=== PATIENT | male | born 1995 | race Caucasian/White ===

== ENCOUNTER 2022-03-02 13:14 | Observation (INO) | payer BC ==
[~2022-03-02] VITALS: Ht 175.3 cm; Wt 53.5 kg
[2022-03-02 14:44] LABS: BASOPHILS ABSOLUTE AUTO 0.07 K/mm3 (0.00-0.23); BASOPHILS PERCENT AUTO 1 % (0-2); EOSINOPHILS PERCENT AUTO 0 % (0-6); Hematocrit 44.1 % (37.0-53.0); Hemoglobin 15.7 g/dL (13.5-17.5); IMMATURE GRAN ABSOLUTE AUTO 0.04 K/mm3 (0.00-0.10); IMMATURE GRAN PERCENT AUTO 0 % (0-1); LYMPHOCYTES ABSOLUTE AUTO 0.97 K/mm3 (0.84-5.20); LYMPHOCYTES PERCENT AUTO 7 % (21-46); MONOCYTES ABSOLUTE AUTO 1.53 K/mm3 (0.16-1.47); MONOCYTES PERCENT AUTO 11 % (4-13); Mean Corpuscular HGB 30.5 pg (26.0-34.0); Mean Corpuscular HGB Conc 35.6 g/dL (31.5-36.5); Mean Corpuscular Volume 86 fL (80-100); Mean Platelet Volume 10.4 fL (9.1-12.4); NEUTROPHILS ABSOLUTE AUTO 11.46 K/mm3 (1.96-9.15); NEUTROPHILS PERCENT AUTO 81 % (41-73); Platelet Count 380 K/mm3 (150-400); RDW Coefficient Variation 11.9 % (11.7-14.2); RDW Standard Deviation 37.9 fL (35.1-46.3); Red Blood Cell Count 5.14 M/mm3 (4.30-5.90); White Blood Cell Count 14.07 K/mm3 (4.00-11.30)
[2022-03-02 15:06] LABS: Alanine Aminotransfer (ALT/SGP 30 U/L (12-78); Albumin, Blood 4.6 g/dL (3.4-5.0); Albumin/Globulin Ratio 1.4 (0.8-1.8); Alk Phos 71 U/L (50-136); Anion Gap 12 mmol/L (6-16); Aspartate Aminotrans (AST/SGOT 16 U/L (12-37); Blood Urea Nitrogen 16 mg/dL (8-24); CO2, Blood 22 mmol/L (21-32); Calcium, Blood 9.6 mg/dL (8.5-10.1); Chloride, Blood 106 mmol/L (98-108); Creatinine, Blood 0.94 mg/dL (0.60-1.20); Globulin, Blood 3.3 g/dL (2.2-4.0); Glomerular Filtration Rate >60 (60-); Glucose, Blood 124 mg/dL (70-99); Potassium, Blood 3.3 mmol/L (3.5-5.5); Sodium, Blood 140 mmol/L (136-145); Total Protein, Blood 7.9 g/dL (6.4-8.2)
[2022-03-02 16:04] LABS: Source, Urine Clean Catch
[2022-03-02 16:07] LABS: Acetaminophen, Random <2.0 ug/mL (10.0-30.0); Salicylate <1.7 mg/dL (2.8-20.0)
[2022-03-02 16:18] LABS: Appearance, Urine Clear (Clear); Bilirubin, Urine Neg (Neg); Blood, Urine 1+ (Neg); Color, Urine Amber (P-Yellow); Glucose Qualitative, Urine Neg (Neg); Ketones, Urine 1+ (Neg); Leukocyte Esterase, Urine Neg (Neg); Nitrite, Urine Neg (Neg); Protein, Urine 3+ (Neg); Specific Gravity, Urine 1.025 (1.003-1.022); Urobilinogen, Urine NORM (Normal)
[2022-03-02 16:36] LABS: Bacteria Few /hpf; Mucus Light (0-Heavy); Squamous Epithelial Cells Rare /hpf (Few)
[2022-03-02 16:38] LABS: U Amphetamine Screen Not Detected; U Barbituate Screen Not Detected; U Benzodiazapine Screen Not Detected; U Buprenorphine Screen Not Detected; U Cannabinoids Screen DETECTED; U Cocaine Screen Not Detected; U Methadone Screen Not Detected; U Methamphetamine Screen Not Detected; U Opiates Screen Not Detected; U Oxycodone Screen Not Detected; U Phencyclidine Screen Not Detected; U Propoxyphene Screen Not Detected
[2022-03-02 19:22] LABS: Influenza A, PCR NEGATIVE (NEGATIVE); Influenza B, PCR NEGATIVE (NEGATIVE); Resp Syncytial Virus, PCR NEGATIVE (NEGATIVE); SARS-Cov-2 (COVID-19) PCR, MMC NEGATIVE (NEGATIVE)
== END 2022-03-04 19:53 ==
LOC: ER 13:14 → EOR 13:15
PROVIDERS: ADMIT Emergency Medicine
DX: F12.950 Cannabis use, unspecified with psychotic disorder with delusions (principal); F12.951 Cannabis use, unspecified with psychotic disorder with hallucinations; F90.9 Attention-deficit hyperactivity disorder, unspecified type; J32.0 Chronic maxillary sinusitis; R00.0 Tachycardia, unspecified; F84.5 Asperger's syndrome; Z20.822 Contact with and (suspected) exposure to COVID-19; G43.909 Migraine, unspecified, not intractable, without status migrainosus
CPT/HCPCS: 0241U; 36415; 70450; 80053; 81001; 84443; 85025; 86592; 93005; 93010; A9270; G0480; J2060; J7030

== ENCOUNTER 2025-04-20 08:47 | Observation (INO) | payer OTHER ==
[~2025-04-20] VITALS: Ht 175.3 cm; Wt 59.4 kg
[~2025-04-20 08:47] MED LIST: Ativan0.5 MG PO; BUPROPION XL150 M1 PO; SEROQUEL100 MG PO
[2025-04-20] MEDS ORDERED: Haloperidol Lactate Inj. 5 MG/ML Injection IM ONE ×2 (09:20→14:05)
[2025-04-20] MEDS ORDERED: LORazepam 2 MG/ML 1ML Injection IM ONE ×2 (09:25→14:10)
[2025-04-20] MEDS ORDERED: Divalproex Sod125 M1 PO (09:32)
[2025-04-20] MEDS ORDERED: QUETIAPINE FUMA5012 PO (09:33)
[2025-04-20 09:57] LABS: BASOPHILS ABSOLUTE AUTO 0.09 K/mm3 (0.00-0.23); BASOPHILS PERCENT AUTO 1 % (0-2); EOSINOPHILS ABSOLUTE AUTO 0.05 K/mm3 (0.00-0.68); EOSINOPHILS PERCENT AUTO 0 % (0-6); Hematocrit 43.9 % (37.0-53.0); Hemoglobin 15.1 g/dL (13.5-17.5); IMMATURE GRAN ABSOLUTE AUTO 0.03 K/mm3 (0.00-0.10); IMMATURE GRAN PERCENT AUTO 0 % (0-1); LYMPHOCYTES ABSOLUTE AUTO 2.46 K/mm3 (0.84-5.20); LYMPHOCYTES PERCENT AUTO 20 % (21-46); MONOCYTES ABSOLUTE AUTO 1.35 K/mm3 (0.16-1.47); MONOCYTES PERCENT AUTO 11 % (4-13); Mean Corpuscular HGB 30.6 pg (26.0-34.0); Mean Corpuscular HGB Conc 34.4 g/dL (31.5-36.5); Mean Corpuscular Volume 89 fL (80-100); Mean Platelet Volume 10.8 fL (9.1-12.4); NEUTROPHILS ABSOLUTE AUTO 8.57 K/mm3 (1.96-9.15); NEUTROPHILS PERCENT AUTO 68 % (41-73); Platelet Count 340 K/mm3 (150-400); RDW Coefficient Variation 12.2 % (11.7-14.2); RDW Standard Deviation 39.8 fL (35.1-46.3); Red Blood Cell Count 4.94 M/mm3 (4.30-5.90); White Blood Cell Count 12.55 K/mm3 (4.00-11.30)
[2025-04-20 10:20] LABS: Salicylate <1.7 mg/dL (2.8-20.0)
[2025-04-20 10:26] LABS: Acetaminophen, Random <2.0 ug/mL (10.0-30.0); Alanine Aminotransfer (ALT/SGP 33 U/L (12-78); Albumin, Blood 4.5 g/dL (3.4-5.0); Albumin/Globulin Ratio 1.5 (0.8-1.8); Alk Phos 69 U/L (50-136); Anion Gap 15 mmol/L (3-11); Aspartate Aminotrans (AST/SGOT 19 U/L (12-37); Bilirubin, Total 1.3 mg/dL (0.1-1.0); Blood Urea Nitrogen 13 mg/dL (8-24); Bun/Creatinine Ratio 14.4 (12.0-20.0); CO2, Blood 23 mmol/L (21-32); Calcium, Blood 9.1 mg/dL (8.5-10.1); Chloride, Blood 100 mmol/L (98-108); Creatinine, Blood 0.91 mg/dL (0.60-1.20); Ethanol (Alcohol), Blood, Med <3 mg/dL; Globulin, Blood 3.1 g/dL (2.2-4.0); Glomerular Filtration Rate 118 (60-); Glucose, Blood 201 mg/dL (70-99); Potassium, Blood 3.5 mmol/L (3.5-5.5); Sodium, Blood 134 mmol/L (136-145); Total Protein, Blood 7.6 g/dL (6.4-8.2)
[2025-04-20] MEDS ORDERED: OLANZapine 10 MG Vial IM ONE (15:25)
[2025-04-21 02:13] LABS: Source, Urine Clean Catch
[2025-04-21 02:17] LABS: Bilirubin, Urine Neg (Neg); Blood, Urine Neg (Neg); Glucose Qualitative, Urine Neg (Neg); Ketones, Urine 2+ (Neg); Leukocyte Esterase, Urine Neg (Neg); Nitrite, Urine Neg (Neg); Protein, Urine 1+ (Neg); Specific Gravity, Urine 1.015 (1.003-1.022); Urobilinogen, Urine NORM (Normal)
[2025-04-21 02:28] LABS: Appearance, Urine Clear (Clear); Color, Urine Yellow (P-Yellow)
[2025-04-21 02:29] LABS: U Amphetamine Screen Not Detected; U Barbituate Screen Not Detected; U Benzodiazapine Screen DETECTED; U Methamphetamine Screen Not Detected
[2025-04-21 02:30] LABS: U Buprenorphine Screen Not Detected; U Cannabinoids Screen DETECTED; U Cocaine Screen Not Detected; U Methadone Screen Not Detected; U Opiates Screen Not Detected; U Oxycodone Screen Not Detected; U Phencyclidine Screen Not Detected
[2025-04-21] MEDS ORDERED: Nicotine 21 MG PATCH TOP SCH (09:00)
[2025-04-21] MEDS ORDERED: Haloperidol Lactate Inj. 5 MG/ML Injection IM ONE (09:25)
[2025-04-21 09:30] VITALS: BP 110/71
[2025-04-21] MEDS ORDERED: LORazepam 2 MG/ML 1ML Injection IM ONE (09:30)
[2025-04-21] MEDS ORDERED: OLANZapine ODT 5 MG Tab PO ONE (09:35)
[2025-04-21] MEDS ORDERED: LORazepam 1 MG Tab PO PRN (09:35)
[2025-04-21] MEDS ORDERED: Celexa20 MG PO (13:57)
== END 2025-04-21 12:57 | disposition other institution (70) ==
LOC: ER 08:47 → EOR 08:48 → EDBEDREQ 04-21 11:40 → EDBEDREQTM 04-21 11:40 → EDBEDREQDT 04-21 11:40 → EOR 04-21 12:57
PROVIDERS: ADMIT Student in an Organized Health Care Education/Training Program
DX: F25.0 Schizoaffective disorder, bipolar type (principal); F12.959 Cannabis use, unspecified with psychotic disorder, unspecified; Z79.899 Other long term (current) drug therapy
CPT/HCPCS: 80053; 80320; 85025; 93005; 93010; 96372; 99285-25; A9270; G0378; G0480; J1630; J2060

== ENCOUNTER 2025-04-21 11:29 | Inpatient (IN) | payer OTHER ==
[~2025-04-21] VITALS: Ht 175.3 cm; Wt 60.5 kg
[~2025-04-21 11:29] MED LIST changes: +Divalproex Sod125 M1 PO; +QUETIAPINE FUMA5012 PO
[2025-04-21 13:16] VITALS: BP 126/79
[2025-04-21 13:23] VITALS: BP 126/79
[2025-04-21] MEDS ORDERED: Celexa20 MG PO (13:57)
[2025-04-21] MEDS ORDERED: Nicotine Polacrilex 2 MG Gum PO PRN (14:20)
[2025-04-21] MEDS ORDERED: Calcium Carbonate 500 MG Tab Chew PO PRN (14:50)
[2025-04-21] MEDS ORDERED: Ondansetron 4 MG SoluTab MM PRN (14:50)
[2025-04-21] MEDS ORDERED: OLANZapine ODT 10 MG Tab MM PRN (14:50)
[2025-04-21] MEDS ORDERED: HydrOXYzine Pamoate 50 MG Cap PO PRN (14:50)
[2025-04-21] MEDS ORDERED: Ibuprofen 600 MG Tab PO PRN (14:50)
[2025-04-21] MEDS ORDERED: Aluminum Hydroxide 320MG/5ML 473 ML PO PRN (14:55)
[2025-04-21] MEDS ORDERED: Melatonin 3 MG Tab PO PRN (14:55)
[2025-04-21] MEDS ORDERED: Polyethylene Glycol 3350 17 gm PO PRN (14:55)
[2025-04-21] MEDS ORDERED: TraZODone HCl 50 MG Tab PO PRN (14:55)
[2025-04-21] MEDS ORDERED: Acetaminophen 325 MG TABLET PO PRN (14:55)
--- NOTE | 2025-04-21 18:40 | NUR ---
SHIFT SUMMARY PT ARRIVED AT [facility] FOR ADMISSION AT APPROX 1300. HE IS AxOx3-4 WITH INTERMITTENT DELUSIONS OF GRANDEUR R/T BEING "SPIRITUALY ELEVATED AND BELIEVING HE IS THE CHOSEN ONE TO SAVE THE UNIVERSE." PT DENIED SI/HI AND AVTH. HE HAS INSIGHT THAT HE HAS SCHIZOAFFECTIVE DISORDER, AND THAT HE RECENTLY STOPPED TAKING HIS MEDICATIONS, BUT HE DOES NOT CORRELATE HIS CURRENT STATE OF MIND TO THE MEDICATION DISRUPTION. PT ALSO APPEARS TO HAVE A COGNITIVE DEFECIT HE STRUGGLES TO COMPREHEND SOME INTAKE QUESTIONS, ALONG WITH VERY POOR SPELLING AND PENMANSHIP. PT REPORTS THAT HIS MOTHER TOOK HIM OUT OF SCHOOL AFTER [employer] AND THAT WAS HIS LAST FORMAL EDUCATION. HE WAS NOT HOMESCHOOLED EITHER. HE HAS ALSO NEEDED FREQUENT REDIRECTION REGARDING TIMES AND WHEN HE CAN HAVE ANOTHER NICOTINE GUM. 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 PT'S ADMISSION COMPLETED. HE IS ON AN INVOLUNTARY HOLD. HE HAS BEEN FOLLOWING THE TREATMENT PLAN SO FAR TODAY. MEDS TO BE STARTED TONIGHT. HE IS CURRENTLY EATING DINNER IN DINING ROOM. DENIES ANY NEEDS AT THIS TIME.
[2025-04-21 20:15] VITALS: BP 124/84
[2025-04-21] MEDS ORDERED: RisperiDONE 1 MG Tab PO SCH (21:00)
--- NOTE | 2025-04-22 04:27 | NUR ---
SHIFT SUMMARY PT RECEIVED PRN ZYPREXA FOR MASS SCORE OF 6 AT THE START OF THE SHIFT. HE WAS OBSERVED OPENING DOORS TO OTHER PATIENT'S ROOMS, INAPPORPRIATE BOUNDARIES WITH STAFF AND PEERS WITH REPEATED RE-DIRECTION. PT DENIES ANY SI, HI, THOUGHTS OF SELF HARM, OR HALLUCINATIONS. HE STATED THAT HE DID NOT KNOW WHY HE WAS HERE. HE HAD HIS EVENING SNACK. HE WAS COMPLIANT WITH MEDICATION AND RECEIVED PRN MELATONIN AND TRAZODONE X2 AND VISTARIL FOR MASS SCORE OF 3. HE ONLY SLEPT FOR APPROXIMATELY 1 HOUR THROUGHOUT THE NIGHT. HE HAS BEEN UP AND DOWN AND NEEDS REPEATED REMINDERS OF THE TIME OF THE NIGHT/DAY, BREAKFAST/COFFEE TIME. Q15 MINUTE CHECKS TO CONTINUE PER PT SAFETY.
[2025-04-22 07:39] LABS: CHOL/HDL RATIO 2.5; Cholesterol 119 mg/dL (50-200); HDL Cholesterol 47 mg/dL (>39); LDL/HDL RATIO 1.3; Low Density Lipoprotein Chol 61 mg/dL (0-110); Triglycerides 53 mg/dL (30-140); Very Low Density Lipoprot Chol 10 mg/dL (6-28)
[2025-04-22 08:30] VITALS: BP 116/82
[2025-04-22] MEDS ORDERED: Multivitamins 1 Tab PO SCH (09:00)
--- NOTE | 2025-04-22 17:51 | NUR ---
SHIFT SUMMARY PT AxOx3-4. PT DISPLAYED CHALLENGING BEHAVIORS THIS SHIFT. HE HAS NEEDED REDIRECTION T/O THE WHOLE DAY FOR GOING INTO OTHER PATIENT'S ROOMS, PUSHING ON LOCKED DOORS, REFUSING MEDICATIONS, STARING AT ANOTHER PATIENT TO THE POINT THEY COMPLAINED, WRITING UNWANTED NOTES TO ANOTHER PATIENT, PUTTING HIS HANDS ON OTHER PATIENT'S AND KICKING DOORS. PT WAS EVENTUALLY REDIRECTED FOR EACH INCIDENT WITHOUT NEED FOR ANY PHYSICAL HOLDS OR CHEMICAL RESTRAINTS. HE DENIED SI/HI AND AVTH, BUT DOES APPEAR INTERMITTENTLY CONFUSED AT TIMES. HE HAD A VISIT WITH HIS MOTHER AND SISTER THIS SHIFT. PROVIDER ORDERED MEDICATION CHANGES TO BE STARTED TONIGHT. PT IS ON AN INVOLUNTARY HOLD. HE IS CURRENTLY PACING THE HALLS. DENIES ANY NEEDS AT THIS TIME.
[2025-04-22] MEDS ORDERED: Haloperidol 5 MG Tab PO PRN (20:05)
[2025-04-22] MEDS ORDERED: LORazepam 1 MG Tab PO PRN (20:05)
[2025-04-22] MEDS ORDERED: DiphenhydrAMINE HCl 50 MG/ML 1ML Vial IM PRN ×2 (20:05)
[2025-04-22] MEDS ORDERED: LORazepam 2 MG/ML 1ML Injection IM PRN (20:05)
[2025-04-22] MEDS ORDERED: Haloperidol Lactate Inj. 5 MG/ML Injection IM PRN (20:05)
[2025-04-22] MEDS ORDERED: DiphenhydrAMINE HCl 50 MG Cap PO PRN (20:05)
[2025-04-22 20:58] VITALS: BP 127/82
[2025-04-22] MEDS ORDERED: Divalproex Sodium 250 MG TABLET.DR PO SCH (21:00)
[2025-04-22] MEDS ORDERED: RisperiDONE 1 MG Tab PO SCH (21:00)
[2025-04-22] MEDS ORDERED: Divalproex Sodium 500 MG TABLET.DR PO SCH (21:00)
[2025-04-22] MEDS ORDERED: LORAZEPAM 1 MG/0.5 ML IM PRN (22:15)
--- NOTE | 2025-04-23 00:58 | NUR ---
MASS SCORE OF 30 AT START OF SHIFT PT WAS PRESENT IN MILIEU, DENIES ANY SI, HI, THOUGHTS OF SELF HARM OR HALLUCINATIONS. PT NOTED TO NEED FREQUENT REDIRECTION HE WAS FOLLOWING PEERS UP AND DOWN THE HALLWAY WITH POOR PERSONAL BOUNDARIES, WOULD ATTEMPT TO GO IN OTHER PT'S ROOMS AND OFTEN WOULD STARE FOR LONG PERIODS OF TIME AT PEERS AND STAFF. PT WAS COMPLIANT WITH EVENING MEDICATIONS AND RECEIVED PRN TRAZODONE AND MELATONIN. THROUGHOUT THE EVENING THE PT WOULD STATE HE WAS READY TO BE DISCHARGED AND WAS REMINDED THAT HE WAS ON A HOLD. PT BECAME AGGITATED AND STARTED CUSSING AT STAFF. MHA WENT TO HAND HIM HIS BAG THAT HE LEFT IN THE GROUP ROOM AND PT GRABBED THE BAG AND THREW IT AT HER, WITH ITEMS HITTING HER IN THE FACE. PT WAS OFFERED PO B52, BUT REFUSED. DR. GRUBER WAS NOTIFED AND RECEIVED ORDERS FOR HANDS ON/SECLUSION. SECURITY WAS CALLED AND HANDS ON WAS PLACED AT 2210 PT ATTEMPTED TO GO IN ANOTHER PT'S ROOM. THE PT KICKED THE [employer]ENTAL [employer]ATS CARETAKER IN THE LEG AND PT WAS ESCORTED TO THE SECLUSION ROOM. HANDS OFF AT 221, SECLUSION STARTED AT 2214. HANDS ON WAS PLACED AGAIN FROM [phone] FOR ADMINISTRATION OF IM B52. SECLUSION ENDED AT 2224. PT THEN CALMLY GOT UP AND RETURNED TO HIS ROOM. HE HAS REMAINED IN BED WITH Q15 MINUTE CHECKS TO CONTINUE PER PT SAFETY.
--- NOTE | 2025-04-23 04:20 | NUR ---
END OF SHIFT UPDATE PT HAS REMAINED IN BED THROUGHOUT THE NIGHT. Q15 MINUTE CHECKS TO CONTINUE PER PT SAFETY.
[2025-04-23] MEDS ORDERED: buPROPion HCL 150 MG TAB.SR.12H PO SCH (09:00)
[2025-04-23] MEDS ORDERED: LORazepam 1 MG Tab PO ONE (10:55)
--- NOTE | 2025-04-23 11:43 | NUR ---
THIS VICE PRESIDENT OF CONTRACTS SPOKE WITH THE PATIENTS MOTHER THIS MORNING. SHE REPORTS THAT THE PATIENT SHOULD NOT BE PRESCRIBED WELBUTRIN DUE A SIDE EFFECT OF AGGRESSION. THE PROVIDER WAS NOTIFIED AND THE WELBUTRIN HAS BEEN DISCONTINUED. THE MOTHER STATES THAT THE PATIENT HAS A DIAGNOSIS OF "SCHIZOAFFECTIVE BIPOLAR" AND HAD BEEN PRESCRIBED SEROQUEL IN THE PAST, BUT THE MEDICATION WAS STOPPED BECAUSE OF THE RISK OF METABOLIC SYNDROME. PATIENT WAS STARTED ON RISPERIDONE HERE, AND THE MOTHER AGREES WITH THIS MED, AND WOULD LIKE TO HAVE INVEGA STARTED IF POSSIBLE BEFORE HE LEAVES. PROVIDER UPDATED ON THIS INFO.
[2025-04-23] MEDS ORDERED: LORazepam 2 MG Tab PO SCH (14:00)
--- NOTE | 2025-04-23 17:18 | NUR ---
SHIFT SUMMARY: PT ALERT AND COOPERATIVE WITH CARE. PT WAS COMPLIANT WITH MEDICATIONS AND CARE. PT DISCUSSED WANTING TO GO HOME AND IS AGREEABLE TO FOLLOWING THE PROVIDERS PLAN. PT PACED IN THE HALLWAY AND SPENT TIME TALKING WITH STAFF AND PEERS.
[2025-04-23 19:53] VITALS: BP 114/67
[2025-04-23] MEDS ORDERED: RisperiDONE 1 MG Tab PO SCH (21:00)
--- NOTE | 2025-04-23 23:28 | NUR ---
MID SHIFT SUMMARY Patient is much more relaxed and pleasant with both peers and staff this evening. He did get out of bed to go to snack, then stayed up for approximately forty minutes before going to bed, He questioned what would happen if he didn't take all of his medications (He was a little overwhelmed at the number of pills) This RN explained that he likely would not get better as quickly as he wanted. (he;s anxious for discharge) This worked and he went to bed around 2200. will continue 15 minute checks for safety and cinfirt
--- NOTE | 2025-04-24 04:06 | NUR ---
END OF SHIFT UPDATE ASSUMED CARE OF PT AT 0015. NO ACUTE CHANGES. PT STILL IN BED AT THIS TIME. Q15 MINUTE CHECKS TO CONTINUE PER PT SAFETY.
[2025-04-24 07:15] VITALS: BP 108/78
[2025-04-24 09:50] LABS: Alanine Aminotransfer (ALT/SGP 57 U/L (12-78); Albumin/Globulin Ratio 1.1 (0.8-1.8); Alk Phos 55 U/L (50-136); Aspartate Aminotrans (AST/SGOT 66 U/L (12-37); Bilirubin, Direct 0.3 mg/dL (0.0-0.3); Bilirubin, Indirect 0.8 mg/dL (0.1-0.7); Bilirubin, Total 1.1 mg/dL (0.1-1.0); Globulin, Blood 3.5 g/dL (2.2-4.0); Total Protein, Blood 7.5 g/dL (6.4-8.2)
[2025-04-24] MEDS ORDERED: Paliperidone Palmitate 234 MG/1.5 ML SYR IM ONE ×2 (10:45→21:00)
--- NOTE | 2025-04-24 13:59 | NUR ---
Spiritual Care Consult | ordered by Dr. Sapna JASSO Meet with pt. in the outdoor patio of the group room as each of the visitation rooms were occupied. Pt. shook my hand. Facilitated a life review where pt. was unsettled by his admission and diagnosis. Pt. verbalized that one staff member told him he "could be here for 180 days," while another said you "could go home tomorrow." Listened with empathy and a calminig presence. Sought to normalize the Pt. experience and maintained some level of trust. Pt. verbalized gratitude for the visit, and additionally verbalized that he felt it was helpful.
--- NOTE | 2025-04-24 16:20 | NUR ---
DISCHARGE NOTE: PT DISCHARGED HOME. STATED UNDERSTANDING OF DISCHARGE INSTRUCTIONS AND DENIED QUESTIONS. DENIED SI, HI AND AVH. PT AMBULATED OUT OF UNIT WITHOUT DIFFICULTY. DISCHARGE INSTRUCTIONS AND BELONGINGS IN HAND. PARENTS ARRIVED FOR RIDE HOME.
--- NOTE | 2025-04-24 16:56 | NUR ---
SHIFT SUMMARY: PT ALERT AND ORIENTED. DENIES SI, HI AND AVH. PT ATTENDED GROUPS AND WAS PRESENT FOR MEALS. PT ASKED THROUGHOUT THE DAY WHEN HE WAS GOING TO GO HOME AND IS AGREEABLE TO THE PLAN WITH THE PROVIDER TO GO HOME TOMORROW. PT PRESENT ON THE UNIT, SPENT TIME PACING IN THE HALLS AND IN THE DAY ROOM. PT INITIALLY DECLINED AFTERNOON MEDS BUT LATER AGREED AND TOOK MEDICATIONS.
[2025-04-24 19:34] VITALS: BP 112/70
[2025-04-24] MEDS ORDERED: Divalproex Sodium 250 MG TABLET.DR PO SCH (21:00)
--- NOTE | 2025-04-25 04:56 | NUR ---
SHIFT SUMMARY: PATIENT WAS IN THE MILIEU AT THE BEGINNING OF THE SHIFT, PACING AT TIMES, AND TALKING WITH STAFF AND PEERS IN THE DAY ROOM. A FEMALE PEER WHO HAS BEEN FLIRTATIOUS TOWARD HIM STARTED FLIRTING WITH ANOTHER MALE PEER, AND PATIENT WENT TO HIS ROOM AND WENT TO BED. HE WAS AWAKE IN BED AND WAS ABLE TO ANSWER CLAIMS SUPPORT SPECIALIST QUESTIONS IN A LOGICAL AND LINEAR MANNER. HE WAS COOPERATIVE WITH MEDICATION ADMINISTRATION, INCLUDING HIS INVEGA SHOT. HE DECLINED TO PARTICIPATE IN SNACK OR WRAP UP GROUP. HE REMAINED IN BED AND WAS NOTED TO BE RESTING QUIETLY WITH EYES CLOSED AND RESPIRATIONS CONFIRMED FOR THE REMAINDER OF THE SHIFT. CONTINUING TO MONITOR FOR SAFETY WITH Q15 MINUTE CHECKS.
[2025-04-25 08:47] VITALS: BP 111/66
--- NOTE | 2025-04-25 10:41 | NUR ---
SHIFT ASSESSMENT: PT WAS RESTING IN BED AT THE TIME OF ASSESSMENT. HE DENIED SI, HI, AVH, ANXIETY AND PAIN. HE REPORTED HIS MOOD 8/10w AND DESCRIBED IT , "PRETTY EUPHORIC ABOUT GOING HOME." PT GOT UP FOR BREAKFAST AND THEN WENT BACK TO BED. HE HAS NOT ATTENDED GROUPS THIS MORNING.
[2025-04-25] MEDS ORDERED: DIVA250ER PO (16:20)
[2025-04-25] MEDS ORDERED: MELA3 PO (16:21)
[2025-04-25] MEDS ORDERED: MULVITA PO (16:24)
[2025-04-25] MEDS ORDERED: NICO2 PO (16:25)
[2025-04-25] MEDS ORDERED: RISP3 PO (16:31)
[2025-04-25] MEDS ORDERED: TRAZ50 PO (16:32)
--- NOTE | 2025-04-25 17:29 | NUR ---
PT WAS DISCHARGED TO HOME WITH HIS MOTHER WITH ALL OF HIS BELONGINGS AND PRINTED DISCHARGE INSTRUCTIONS AT 16:30. DISCHARGE INSTRUCTIONS WERE EXPLAINED TO PT AND HIS MOTHER. HARD COPY OF [employer] WAS HANDED TO HIS MOTHER EXPLAINING THAT SHE NEEDS TO TAKE IT TO THE PHARMACY AND TO PICK IT UP WELL THE MEDS THAT WERE FAXED. SHE VOICED UNDERSTANDING.
== END 2025-04-25 16:53 | disposition home or self-care (01) | DRG 885 ==
LOC: BHU 11:29
PROVIDERS: ADMIT Student in an Organized Health Care Education/Training Program
DX: F25.0 Schizoaffective disorder, bipolar type (principal); Z79.899 Other long term (current) drug therapy
CPT/HCPCS: 36415; 80061; 80076; 80164; 82140; 83036; A9270; J1200; J1630; J2060

== ENCOUNTER → 2025-05-21 | Outpatient (CLI) | payer OTHER ==
[~2025-05-21] MED LIST changes: +Celexa20 MG PO; +DIVA250ER PO; +MELA3 PO; +MULVITA PO; +NICO2 PO; +RISP3 PO; +TRAZ50 PO
[2025-05-21 20:23] LABS: Alanine Aminotransfer (ALT/SGP 28.0 U/L (12-78); Albumin, Blood 3.9 g/dL (3.4-5.0); Albumin/Globulin Ratio 1.2 (0.8-1.8); Anion Gap 8.0 mmol/L (3-11); Aspartate Aminotrans (AST/SGOT 10.0 U/L (12-37); Bilirubin, Total 1.1 mg/dL (0.1-1.0); Blood Urea Nitrogen 18.0 mg/dL (8-24); CO2, Blood 28.0 mmol/L (21-32); Calcium, Blood 8.9 mg/dL (8.5-10.1); Chloride, Blood 104.0 mmol/L (98-108); Creatinine, Blood 0.72 mg/dL (0.60-1.20); Globulin, Blood 3.3 g/dL (2.2-4.0); Glucose, Blood 142.0 mg/dL (70-99); Potassium, Blood 3.7 mmol/L (3.5-5.5); Sodium, Blood 136.0 mmol/L (136-145); Total Protein, Blood 7.2 g/dL (6.4-8.2)
== END | disposition home or self-care (01) ==
LOC: LAB 15:53 → LAB SHORT 15:53
PROVIDERS: Nurse Practitioner Psychiatric/Mental Health
DX: F25.0 Schizoaffective disorder, bipolar type (principal); Z79.899 Other long term (current) drug therapy
CPT/HCPCS: 80053

== ENCOUNTER → 2025-10-10 | Outpatient (CLI) | payer OTHER ==
[2025-10-10 11:40] LABS: Alanine Aminotransfer (ALT/SGP 81.0 U/L (12-78); Albumin, Blood 4.0 g/dL (3.4-5.0); Albumin/Globulin Ratio 1.0 (0.8-1.8); Anion Gap 10.0 mmol/L (3-11); Aspartate Aminotrans (AST/SGOT 35.0 U/L (12-37); Bilirubin, Total 1.2 mg/dL (0.1-1.0); Blood Urea Nitrogen 16.0 mg/dL (8-24); CO2, Blood 25.0 mmol/L (21-32); Calcium, Blood 9.1 mg/dL (8.5-10.1); Chloride, Blood 106.0 mmol/L (98-108); Creatinine, Blood 0.9 mg/dL (0.60-1.20); Globulin, Blood 4.1 g/dL (2.2-4.0); Glucose, Blood 151.0 mg/dL (70-99); Potassium, Blood 3.5 mmol/L (3.5-5.5); Sodium, Blood 137.0 mmol/L (136-145); Thyroid Stimulating Hormone 1.97 uIU/mL (0.360-4.800); Total Protein, Blood 8.1 g/dL (6.4-8.2)
== END ==
LOC: LAB SHORT 09:24 → LAB 09:24
PROVIDERS: Nurse Practitioner Psychiatric/Mental Health
DX: F25.0 Schizoaffective disorder, bipolar type (principal)
CPT/HCPCS: 80053; 84443